=== PATIENT | female | born 1965 | race Two or more races ===

== ENCOUNTER 2017-12-29 07:51 | Outpatient (CLI) | payer OTHER | END 2017-12-29 08:07 | disposition home or self-care (01) | LOC: LAB 07:51 | DX: C73 Malignant neoplasm of thyroid gland (principal); D68.0 Von Willebrand disease; E55.9 Vitamin D deficiency, unspecified; D68.9 Coagulation defect, unspecified; D51.8 Other vitamin B12 deficiency anemias; K21.9 Gastro-esophageal reflux disease without esophagitis; E03.8 Other specified hypothyroidism; D50.8 Other iron deficiency anemias; I10 Essential (primary) hypertension; K90.89 Other intestinal malabsorption; R97.0 Elevated carcinoembryonic antigen [CEA]; R97.8 Other abnormal tumor markers ==

== ENCOUNTER → 2018-01-21 07:46 | Outpatient (CLI) | payer OTHER | END | disposition home or self-care (01) | LOC: LAB 07:46 | DX: C73 Malignant neoplasm of thyroid gland (principal); D68.0 Von Willebrand disease; E55.9 Vitamin D deficiency, unspecified; D68.9 Coagulation defect, unspecified; D51.8 Other vitamin B12 deficiency anemias; K21.9 Gastro-esophageal reflux disease without esophagitis; E03.9 Hypothyroidism, unspecified; D50.8 Other iron deficiency anemias; I10 Essential (primary) hypertension; E03.8 Other specified hypothyroidism; R97.0 Elevated carcinoembryonic antigen [CEA]; K90.89 Other intestinal malabsorption ==

== ENCOUNTER 2018-07-08 14:46 | Outpatient (CLI) | payer OTHER | END 2018-07-08 16:49 | disposition home or self-care (01) | LOC: TOM 14:46 | DX: G44.221 Chronic tension-type headache, intractable (principal); R42 Dizziness and giddiness; R22.0 Localized swelling, mass and lump, head ==

== ENCOUNTER 2018-07-09 10:44 | Outpatient (CLI) | payer OTHER | END 2018-07-09 10:55 | disposition home or self-care (01) | LOC: SONOGRAMA 10:44 | DX: N94.0 Mittelschmerz (principal); R10.2 Pelvic and perineal pain; N94.89 Other specified conditions associated with female genital organs and menstrual cycle; M54.2 Cervicalgia ==

== ENCOUNTER 2019-01-14 10:58 | Outpatient (CLI) | payer OTHER | END 2019-01-14 11:17 | disposition home or self-care (01) | LOC: LAB 10:58 | DX: C73 Malignant neoplasm of thyroid gland (principal); D68.0 Von Willebrand disease; E55.9 Vitamin D deficiency, unspecified; D68.8 Other specified coagulation defects; D51.8 Other vitamin B12 deficiency anemias; K21.9 Gastro-esophageal reflux disease without esophagitis; E03.8 Other specified hypothyroidism; D50.8 Other iron deficiency anemias; I10 Essential (primary) hypertension; K90.89 Other intestinal malabsorption; R97.0 Elevated carcinoembryonic antigen [CEA] ==

== ENCOUNTER 2019-07-06 06:55 | Outpatient (CLI) | payer OTHER | END 2019-07-06 07:11 | disposition home or self-care (01) | LOC: LAB 06:55 | DX: C73 Malignant neoplasm of thyroid gland (principal); D68.0 Von Willebrand disease; E55.9 Vitamin D deficiency, unspecified; D68.8 Other specified coagulation defects; K21.9 Gastro-esophageal reflux disease without esophagitis; E03.8 Other specified hypothyroidism; D50.8 Other iron deficiency anemias; I10 Essential (primary) hypertension; K90.89 Other intestinal malabsorption; R97.0 Elevated carcinoembryonic antigen [CEA]; E53.8 Deficiency of other specified B group vitamins; E78.49 Other hyperlipidemia; N39.0 Urinary tract infection, site not specified; E11.9 Type 2 diabetes mellitus without complications ==

== ENCOUNTER 2019-10-21 10:54 | Emergency (ER) | payer OTHER ==
[~2019-10-21] VITALS: Ht 160 cm; Wt 56.2 kg
[2019-10-21] MEDS ORDERED: CELEXA40 MG (11:12)
[2019-10-21] MEDS ORDERED: SYNTHROID100 MCG (11:12)
[2019-10-21] MEDS ORDERED: DDAVP 0.0110 MCG/0.1 (11:13)
== END 2019-10-21 14:09 | disposition home or self-care (01) ==
LOC: ER 10:54
DX: J11.1 Influenza due to unidentified influenza virus with other respiratory manifestations (principal); J06.9 Acute upper respiratory infection, unspecified; H10.11 Acute atopic conjunctivitis, right eye

== ENCOUNTER 2019-11-24 16:39 | Emergency (ER) | payer OTHER ==
[~2019-11-24] VITALS: Ht 160 cm; Wt 56.2 kg
[~2019-11-24 16:39] MED LIST: CELEXA40 MG; DDAVP 0.0110 MCG/0.1; SYNTHROID100 MCG
== END 2019-11-24 21:17 | disposition home or self-care (01) ==
LOC: ER 16:39
DX: S00.03XA Contusion of scalp, initial encounter (principal); W18.09XA Striking against other object with subsequent fall, initial encounter; Y93.89 Activity, other specified; Y92.69 Other specified industrial and construction area as the place of occurrence of the external cause; Y99.8 Other external cause status

== ENCOUNTER 2019-12-26 07:52 | Outpatient (CLI) | payer OTHER | END 2019-12-26 08:15 | disposition home or self-care (01) | LOC: LAB 07:52 | DX: D50.8 Other iron deficiency anemias (principal); I10 Essential (primary) hypertension; C73 Malignant neoplasm of thyroid gland; D68.0 Von Willebrand disease; E55.9 Vitamin D deficiency, unspecified; D68.8 Other specified coagulation defects; D51.8 Other vitamin B12 deficiency anemias; K21.9 Gastro-esophageal reflux disease without esophagitis; E03.8 Other specified hypothyroidism; D51.1 Vitamin B12 deficiency anemia due to selective vitamin B12 malabsorption with proteinuria; D51.0 Vitamin B12 deficiency anemia due to intrinsic factor deficiency; K90.89 Other intestinal malabsorption; R97.0 Elevated carcinoembryonic antigen [CEA]; N39.0 Urinary tract infection, site not specified ==

== ENCOUNTER 2020-07-11 07:10 | Outpatient (CLI) | payer OTHER | END 2020-07-11 07:25 | disposition home or self-care (01) | LOC: LAB 07:10 | PROVIDERS: ATTEND Internal Medicine Hematology & Oncology | DX: D50.8 Other iron deficiency anemias (principal); I10 Essential (primary) hypertension; D51.8 Other vitamin B12 deficiency anemias; E55.9 Vitamin D deficiency, unspecified; E03.8 Other specified hypothyroidism; D68.8 Other specified coagulation defects; D68.0 Von Willebrand disease; R97.0 Elevated carcinoembryonic antigen [CEA]; R97.8 Other abnormal tumor markers; N39.0 Urinary tract infection, site not specified; C73 Malignant neoplasm of thyroid gland; K21.9 Gastro-esophageal reflux disease without esophagitis ==

== ENCOUNTER 2021-01-03 11:19 | Outpatient (CLI) | payer OTHER | END 2021-01-03 11:42 | disposition home or self-care (01) | LOC: LAB 11:19 | PROVIDERS: ATTEND Internal Medicine Hematology & Oncology | DX: D50.8 Other iron deficiency anemias (principal); N39.0 Urinary tract infection, site not specified; I10 Essential (primary) hypertension; D51.8 Other vitamin B12 deficiency anemias; E55.9 Vitamin D deficiency, unspecified; E03.8 Other specified hypothyroidism; D68.8 Other specified coagulation defects; D68.0 Von Willebrand disease; C90.00 Multiple myeloma not having achieved remission; D47.2 Monoclonal gammopathy; R97.0 Elevated carcinoembryonic antigen [CEA]; R97.8 Other abnormal tumor markers; C73 Malignant neoplasm of thyroid gland; K21.9 Gastro-esophageal reflux disease without esophagitis; M25.511 Pain in right shoulder ==

== ENCOUNTER → 2021-09-16 06:46 | Outpatient (CLI) | payer OTHER | END | disposition home or self-care (01) | LOC: LAB 06:46 | PROVIDERS: ATTEND Internal Medicine Hematology & Oncology | DX: D50.8 Other iron deficiency anemias (principal); I10 Essential (primary) hypertension; R74.02 Elevation of levels of lactic acid dehydrogenase [LDH]; K76.89 Other specified diseases of liver; D51.8 Other vitamin B12 deficiency anemias; E55.9 Vitamin D deficiency, unspecified; E03.8 Other specified hypothyroidism; D68.8 Other specified coagulation defects; D68.0 Von Willebrand disease; R97.0 Elevated carcinoembryonic antigen [CEA]; R97.8 Other abnormal tumor markers; C73 Malignant neoplasm of thyroid gland; K21.9 Gastro-esophageal reflux disease without esophagitis ==

== ENCOUNTER 2021-12-13 09:53 | Outpatient (CLI) | payer OTHER | END 2021-12-13 10:00 | disposition home or self-care (01) | LOC: LAB 09:53 | PROVIDERS: ATTEND Obstetrics & Gynecology | DX: N39.0 Urinary tract infection, site not specified (principal); B96.29 Other Escherichia coli [E. coli] as the cause of diseases classified elsewhere; R79.89 Other specified abnormal findings of blood chemistry; E55.9 Vitamin D deficiency, unspecified; Z21 Asymptomatic human immunodeficiency virus [HIV] infection status; Z00.00 Encounter for general adult medical examination without abnormal findings; I10 Essential (primary) hypertension; E03.8 Other specified hypothyroidism ==

== ENCOUNTER 2021-12-22 06:21 | Day surgery (SDC) | payer OTHER ==
[~2021-12-22 06:21] MED LIST changes: +ALENDRONATE SOD70 MG PO; +DETROL2 MG PO; -SYNTHROID100 MCG; +SYNTHROID100 MCG PO
== END 2021-12-22 12:20 | disposition home or self-care (01) ==
LOC: CIR.AMB 06:21
PROVIDERS: ATTEND Obstetrics & Gynecology
DX: N95.0 Postmenopausal bleeding (principal); Z20.822 Contact with and (suspected) exposure to COVID-19

== ENCOUNTER 2022-03-25 12:18 | Emergency (ER) | payer OTHER ==
[~2022-03-25] VITALS: Ht 160 cm; Wt 58.1 kg
== END 2022-03-25 16:00 | disposition home or self-care (01) ==
LOC: ER 12:18
DX: K59.00 Constipation, unspecified (principal); Z88.8 Allergy status to other drugs, medicaments and biological substances; I10 Essential (primary) hypertension; E03.9 Hypothyroidism, unspecified

== ENCOUNTER 2022-03-27 08:52 | Emergency (ER) | payer OTHER ==
[~2022-03-27] VITALS: Ht 167.6 cm; Wt 58.5 kg
== END 2022-03-27 17:14 | disposition home or self-care (01) ==
LOC: ER 08:52
DX: K59.09 Other constipation (principal); N13.6 Pyonephrosis; N28.89 Other specified disorders of kidney and ureter; N83.291 Other ovarian cyst, right side; Z88.6 Allergy status to analgesic agent

== ENCOUNTER 2023-01-28 07:51 | Outpatient (CLI) | payer OTHER | END 2023-01-28 08:03 | disposition home or self-care (01) | LOC: RX STUDY 07:51 | PROVIDERS: ATTEND Internal Medicine Gastroenterology | DX: R13.0 Aphagia (principal); N20.0 Calculus of kidney; R10.13 Epigastric pain ==

== ENCOUNTER 2023-03-19 06:45 | Outpatient (CLI) | payer OTHER | END 2023-03-19 06:46 | disposition home or self-care (01) | LOC: LAB 06:45 | PROVIDERS: ATTEND Internal Medicine Hematology & Oncology | DX: D50.8 Other iron deficiency anemias (principal); I10 Essential (primary) hypertension; R74.02 Elevation of levels of lactic acid dehydrogenase [LDH]; K76.89 Other specified diseases of liver; D51.8 Other vitamin B12 deficiency anemias; E55.9 Vitamin D deficiency, unspecified; E03.8 Other specified hypothyroidism; D68.8 Other specified coagulation defects; D69.1 Qualitative platelet defects; D68.00 Von Willebrand disease, unspecified; C73 Malignant neoplasm of thyroid gland; D68.9 Coagulation defect, unspecified; K21.9 Gastro-esophageal reflux disease without esophagitis; E03.9 Hypothyroidism, unspecified ==

== ENCOUNTER 2023-03-27 08:29 | Outpatient (CLI) | payer OTHER | END 2023-03-27 08:30 | disposition home or self-care (01) | LOC: LAB 08:29 | PROVIDERS: ATTEND Internal Medicine Hematology & Oncology | DX: E21.0 Primary hyperparathyroidism (principal); E83.52 Hypercalcemia; C73 Malignant neoplasm of thyroid gland; D68.00 Von Willebrand disease, unspecified; E55.9 Vitamin D deficiency, unspecified; D68.9 Coagulation defect, unspecified; D51.8 Other vitamin B12 deficiency anemias; K21.9 Gastro-esophageal reflux disease without esophagitis; E03.9 Hypothyroidism, unspecified ==

== ENCOUNTER → 2023-12-09 11:36 | Outpatient (CLI) | payer OTHER ==
[2023-12-09 14:22] LABS: COL EPI 91 SECONDS (82-175)
[2023-12-09 14:25] LABS: INR 1.05
[2023-12-09 14:46] LABS: PARTIAL THROMBOPLASTIN TIME 44.4 SECONDS (22.0-34.0)
[2023-12-09 15:03] LABS: FOLIC ACID > 20.00 ng/ml (4.78-20)
[2023-12-11 18:06] LABS: CALCIUM IONIZED 4.9 mg/dL (4.5-5.6)
== END | disposition home or self-care (01) ==
LOC: LAB 11:36
PROVIDERS: ATTEND Internal Medicine Hematology & Oncology
DX: C73 Malignant neoplasm of thyroid gland (principal); D68.01 Von Willebrand disease, type 1; E55.9 Vitamin D deficiency, unspecified; D68.9 Coagulation defect, unspecified; D51.8 Other vitamin B12 deficiency anemias; K21.9 Gastro-esophageal reflux disease without esophagitis; E03.9 Hypothyroidism, unspecified

== ENCOUNTER 2023-12-18 08:40 | Outpatient (CLI) | payer OTHER ==
[2023-12-18 12:54] LABS: HEMATOCRIT 35.6 % (36.0-45.00); HEMOGLOBIN 11.7 g/dL (12.0-15.00); MEAN CELL VOLUME 86.9 fL (80.00-100.00); MEAN CORPUSCULAR HEMOGLOBIN 28.6 pg (27.00-32.0); MEAN CORPUSCULAR HGB CONC 32.9 g/dl (32.0-36.0); PLATELET COUNT 248 K/uL (150-450); RED CELL DISTRIBUTION WIDTH 14.7 % (11.5-14.5)
[2023-12-18 13:24] LABS: ALBUMIN 3.9 gm/dL (3.4-5.0); BILIRUBIN TOTAL 0.24 mg/dL (0.3-1.2); CALCIUM 9.2 mg/dL (8.5-10.1); CREATININE SERUM 0.58 mg/dL (0.55-1.02); GFR 107.15; GLOBULINA 3.6 G/DL (2.4-3.5); MAGNESIUM 2.2 mg/dL (1.8-2.4); PHOSPHOROUS 4.4 mg/dL (2.5-4.9); POTASSIUM 4.46 mEq/L (3.5-5.1); TOTAL PROTEIN 7.5 gm/dL (6.4-8.2)
[2023-12-18 13:30] LABS: C-REACTIVE PROTEIN 0.63 MG/DL (0.00-0.29)
[2023-12-18 13:43] LABS: D DIMER 0.61 MG/L
[2023-12-18 14:18] LABS: ERYTHROCYTE SEDIMENTATION RATE 30 mm/hr
== END 2023-12-18 08:41 | disposition home or self-care (01) ==
LOC: LAB 08:40
PROVIDERS: ATTEND Orthopaedic Surgery
DX: D64.9 Anemia, unspecified (principal); M06.4 Inflammatory polyarthropathy; E55.9 Vitamin D deficiency, unspecified; M85.9 Disorder of bone density and structure, unspecified; E83.42 Hypomagnesemia; E56.1 Deficiency of vitamin K; E21.3 Hyperparathyroidism, unspecified; E88.89 Other specified metabolic disorders; M81.8 Other osteoporosis without current pathological fracture; Z96.641 Presence of right artificial hip joint

== ENCOUNTER 2023-12-23 12:10 | Outpatient (CLI) | payer OTHER | END 2023-12-23 12:18 | disposition home or self-care (01) | LOC: RAD 12:10 | PROVIDERS: ATTEND Orthopaedic Surgery | DX: Z96.641 Presence of right artificial hip joint (principal) ==

== ENCOUNTER → 2024-01-07 | Outpatient (CLI) | payer OTHER | END | disposition home or self-care (01) | LOC: RAD 10:45 | PROVIDERS: ATTEND Orthopaedic Surgery | DX: M54.50 Low back pain, unspecified (principal); M25.561 Pain in right knee ==

== ENCOUNTER 2024-03-02 09:41 | Outpatient (CLI) | payer OTHER | END 2024-03-02 09:54 | disposition home or self-care (01) | LOC: MRI 09:41 | PROVIDERS: ATTEND Orthopaedic Surgery | DX: M25.561 Pain in right knee (principal); M23.91 Unspecified internal derangement of right knee | CPT/HCPCS: 73721 ==

== ENCOUNTER 2024-05-24 08:06 | Outpatient (CLI) | payer OTHER | END 2024-05-24 08:28 | disposition home or self-care (01) | LOC: TOM 08:06 | PROVIDERS: ATTEND Internal Medicine Gastroenterology | DX: R10.12 Left upper quadrant pain (principal); R10.32 Left lower quadrant pain ==

== ENCOUNTER 2024-06-02 09:59 | Outpatient (CLI) | payer OTHER | END 2024-06-02 10:13 | disposition home or self-care (01) | LOC: RX STUDY 09:59 → SONOGRAMA 09:59 → RX STUDY 10:13 | PROVIDERS: ATTEND Internal Medicine Gastroenterology | DX: R13.10 Dysphagia, unspecified (principal) ==

== ENCOUNTER 2024-06-08 11:19 | Outpatient (CLI) | payer OTHER ==
[2024-06-08 12:34] LABS: HEMATOCRIT 36.2 % (36.0-45.00); HEMOGLOBIN 12.1 g/dL (12.0-15.00); MEAN CELL VOLUME 88.7 fL (80.00-100.00); MEAN CORPUSCULAR HEMOGLOBIN 29.7 pg (27.00-32.0); MEAN CORPUSCULAR HGB CONC 33.5 g/dl (32.0-36.0); PLATELET COUNT 224 K/uL (150-450); RED BLOOD COUNT 4.09 M/uL (4.00-6.00); RED CELL DISTRIBUTION WIDTH 14.5 % (11.5-14.5)
[2024-06-08 12:39] LABS: INR 1.01; PARTIAL THROMBOPLASTIN TIME 44.6 SECONDS (22.0-34.0); PROTHROMBIN TIME 10.2 SECONDS (9.0-11.5)
[2024-06-08 12:41] LABS: ALBUMIN 3.9 gm/dL (3.4-5.0); BILIRUBIN TOTAL 0.54 mg/dL (0.3-1.2); CALCIUM 8.8 mg/dL (8.5-10.1); CREATININE SERUM 0.61 mg/dL (0.55-1.02); GFR 101.09; GLOBULINA 3.3 G/DL (2.4-3.5); POTASSIUM 3.93 mEq/L (3.5-5.1); TOTAL PROTEIN 7.2 gm/dL (6.4-8.2)
[2024-06-08 13:03] LABS: FOLIC ACID > 20.00 ng/ml (4.78-20); VITAMIN D3 25 HYDROXY 38.14 ng/ml (30-120)
[2024-06-09 13:12] LABS: CALCIUM IONIZED 4.8 mg/dL (4.5-5.6)
== END 2024-06-08 11:20 | disposition home or self-care (01) ==
LOC: LAB 11:19
PROVIDERS: ATTEND Internal Medicine Hematology & Oncology
DX: C73 Malignant neoplasm of thyroid gland (principal); D68.01 Von Willebrand disease, type 1; E55.9 Vitamin D deficiency, unspecified; D68.9 Coagulation defect, unspecified; D51.8 Other vitamin B12 deficiency anemias; K21.9 Gastro-esophageal reflux disease without esophagitis; E03.9 Hypothyroidism, unspecified; M81.0 Age-related osteoporosis without current pathological fracture; I10 Essential (primary) hypertension; R74.02 Elevation of levels of lactic acid dehydrogenase [LDH]; K76.89 Other specified diseases of liver; E21.0 Primary hyperparathyroidism

== ENCOUNTER 2024-10-30 07:42 | Outpatient (CLI) | payer OTHER | END 2024-10-30 08:03 | disposition home or self-care (01) | LOC: MRI 07:42 | DX: G51.39 Clonic hemifacial spasm, unspecified (principal); D68.01 Von Willebrand disease, type 1; C73 Malignant neoplasm of thyroid gland | CPT/HCPCS: 70544; 70553 ==

== ENCOUNTER 2024-12-14 10:05 | Outpatient (CLI) | payer OTHER ==
[2024-12-14 10:51] LABS: HEMATOCRIT 38.5 % (36.0-45.00); HEMOGLOBIN 13.1 g/dL (12.0-15.00); MEAN CELL VOLUME 89.2 fL (80.00-100.00); MEAN CORPUSCULAR HEMOGLOBIN 30.3 pg (27.00-32.0); PLATELET COUNT 225 K/uL (150-450); RED BLOOD COUNT 4.32 M/uL (4.00-6.00); RED CELL DISTRIBUTION WIDTH 13.9 % (11.5-14.5)
[2024-12-14 11:03] LABS: COL EPI 95 SECONDS (82-175)
[2024-12-14 11:19] LABS: INR 1.06; PROTHROMBIN TIME 11.5 SECONDS (9.0-11.5)
[2024-12-14 11:27] LABS: PARTIAL THROMBOPLASTIN TIME 47.5 SECONDS (22.0-34.0)
[2024-12-14 12:09] LABS: ALBUMIN 3.9 gm/dL (3.4-5.0); BILIRUBIN TOTAL 0.51 mg/dL (0.3-1.2); CALCIUM 9.1 mg/dL (8.5-10.1); CREATININE SERUM 0.58 mg/dL (0.55-1.02); GFR 106.77; GLOBULINA 3.4 G/DL (2.4-3.5); POTASSIUM 3.9 mEq/L (3.5-5.1); TOTAL PROTEIN 7.3 gm/dL (6.4-8.2)
[2024-12-14 13:53] LABS: FOLIC ACID > 20.00 ng/ml (4.78-20); VITAMIN D3 25 HYDROXY 32.31 ng/ml (30-120)
[2024-12-16 12:09] LABS: FACTOR VIII ACTIVITY 99 % (56-140); VON WILLERBRAND ACTIVITY 121 % (50-200); VON WILLERBRAND ANTIGEN 105 % (50-200)
== END 2024-12-14 10:07 | disposition home or self-care (01) ==
LOC: LAB 10:05
PROVIDERS: ATTEND Internal Medicine Hematology & Oncology
DX: C73 Malignant neoplasm of thyroid gland (principal); D68.01 Von Willebrand disease, type 1; E55.9 Vitamin D deficiency, unspecified; D51.8 Other vitamin B12 deficiency anemias; K21.9 Gastro-esophageal reflux disease without esophagitis; E03.9 Hypothyroidism, unspecified; M81.0 Age-related osteoporosis without current pathological fracture; D50.8 Other iron deficiency anemias; I10 Essential (primary) hypertension; R74.02 Elevation of levels of lactic acid dehydrogenase [LDH]; K76.89 Other specified diseases of liver; D68.8 Other specified coagulation defects

== ENCOUNTER 2025-07-18 09:52 | Outpatient (CLI) | payer OTHER ==
[2025-07-18 11:14] LABS: URINE APPEARANCE Clear; URINE BILIRRUBIN Negative (NEGATIVE); URINE BLOOD Negative; URINE COLOR Yellow; URINE GLUCOSE Negative (NEGATIVE); URINE KETONE Negative (NEGATIVE); URINE LEUKOCYTE Negative; URINE NITRATE Positive; URINE PROTEIN Negative (NEGATIVE); URINE UROBILINOGEN 0.2 E.U./dl
[2025-07-18 11:15] LABS: URINE EPITHELIAL CELLS 15.9 uL (0.0-38.8); URINE RBC 8.7 uL (0.0-20.8); URINE WBC 18.1 uL (0.0-23.2)
[2025-07-18 11:36] LABS: BASO % 0.9 % (0.1-1.2); EOS # 0.05 (0.04-0.54); EOS % 1.1 % (0.7-7.0); LYMPH # 0.93 (1.18-3.74); LYMPH % 21.2 % (19.3-53.1); MEAN PLATELET VOLUME 10.70 fl (9.4-12.4); MONO # 0.24 (0.24-0.82); MONO % 5.5 % (4.7-12.5); NEUT # 3.12 (1.56-6.13); NEUT % 71.1 % (34.0-71.1); RED CELL DISTRIBUTION WIDTH 13.0 % (11.6-14.4)
[2025-07-18 11:42] LABS: URINE BACTERIA > 9821.5 uL (0.0-1933); URINE CAST 0.00 uL (0.0-1.40)
[2025-07-18 11:54] LABS: COL EPI 120 SECONDS (82-175)
[2025-07-18 12:04] LABS: INR 1.00
[2025-07-18 12:09] LABS: ALT/SGPT 40.0 U/L (12-78); AST/SGOT 30.0 U/L (15-37); BILIRUBIN TOTAL 0.47 mg/dL (0.3-1.2); BUN CREA RATIO 25.0 (7.0-25.0); CHOL HDL RATIO 2.7 (0-5.0); CREATININE SERUM 0.59 mg/dL (0.55-1.02); FE 73.0 ug/dl (50-170); GFR 104.69; GLOBULINA 3.8 G/DL (2.4-3.5); GLUCOSE FASTING 86.0 mg/dL (65-100); HDL 97.0 mg/dl (40-60); LDH 164.0 U/L (84-246); LDL 154.0 mg/dl (0-130); OSMOLALITY SERUM 283.0 MOSM/KG (275-295); T4 FREE 1.15 NG/ML (0.76-1.46); TSH 1.38 uIU/mL (0.358-3.74); VLDL 14.0 (0-39)
[2025-07-18 13:02] LABS: FOLIC ACID > 20.00 ng/ml (4.78-20); VITAMIN D3 25 HYDROXY 64.53 ng/ml (30-120)
== END 2025-07-18 10:13 | disposition home or self-care (01) ==
LOC: LAB 09:52
PROVIDERS: ATTEND Internal Medicine Hematology & Oncology
DX: C73 Malignant neoplasm of thyroid gland (principal); D68.01 Von Willebrand disease, type 1; E55.9 Vitamin D deficiency, unspecified; D68.9 Coagulation defect, unspecified; D51.8 Other vitamin B12 deficiency anemias; K21.9 Gastro-esophageal reflux disease without esophagitis; E03.9 Hypothyroidism, unspecified; M81.0 Age-related osteoporosis without current pathological fracture; D50.8 Other iron deficiency anemias; I10 Essential (primary) hypertension; R74.02 Elevation of levels of lactic acid dehydrogenase [LDH]; K76.89 Other specified diseases of liver; D68.8 Other specified coagulation defects; E11.9 Type 2 diabetes mellitus without complications; E78.2 Mixed hyperlipidemia; E03.8 Other specified hypothyroidism; N39.0 Urinary tract infection, site not specified